=== PATIENT | male | born 2000 | race Hispanic/Latino ===

== ENCOUNTER 2019-02-07 21:50 | Emergency (ER) | payer OTHER ==
[~2019-02-07] VITALS: Ht 165.1 cm; Wt 70.5 kg
[2019-02-07 21:51] VITALS: BP 141/73
[2019-02-07] MEDS ORDERED: NEOSPORIN OINT 0.9 GM PKT (FLOOR STOCK) TOP ONE (23:00)
[2019-02-07] MEDS ORDERED: PERCOCET 5MG/325MG TAB PO ONE (23:00)
== END 2019-02-07 23:47 | disposition home or self-care (01) ==
LOC: M ED 21:50
DX: T23.202A Burn of second degree of left hand, unspecified site, initial encounter (principal); T31.0 Burns involving less than 10% of body surface; X19.XXXA Contact with other heat and hot substances, initial encounter; Y92.018 Other place in single-family (private) house as the place of occurrence of the external cause; F17.200 Nicotine dependence, unspecified, uncomplicated

== ENCOUNTER 2019-04-20 18:33 | Emergency (ER) | payer OTHER ==
[~2019-04-20] VITALS: Ht 165.1 cm; Wt 79.2 kg
[2019-04-20 18:33] VITALS: BP 139/66
[2019-04-20] MEDS ORDERED: BACT800T5 PO (19:18)
== END 2019-04-20 19:34 | disposition home or self-care (01) ==
LOC: M ED 18:33
DX: L72.11 Pilar cyst (principal)

== ENCOUNTER 2019-09-08 20:46 | Emergency (ER) | payer OTHER ==
[~2019-09-08] VITALS: Ht 165.1 cm; Wt 77.8 kg
[~2019-09-08 20:46] MED LIST: BACT800T5 PO
[2019-09-08 20:47] VITALS: BP 125/62
[2019-09-08] MEDS ORDERED: LIDOCAINE 1% MDV 20ML VIAL IM ONE (21:30)
[2019-09-08] MEDS ORDERED: NEOSPORIN OINT 0.9 GM PKT TOP ONE (22:00)
== END 2019-09-08 21:56 | disposition home or self-care (01) ==
LOC: M ED 20:46
DX: S61.412A Laceration without foreign body of left hand, initial encounter (principal); W26.0XXA Contact with knife, initial encounter; Y92.89 Other specified places as the place of occurrence of the external cause; F17.210 Nicotine dependence, cigarettes, uncomplicated